=== PATIENT | female | born 1950 | race Caucasian/White ===

== ENCOUNTER 2016-04-17 16:55 | Emergency (ER) | payer OTHER, MEDICARE ==
[~2016-04-17] VITALS: Ht 177.8 cm; Wt 74.6 kg
[~2016-04-17 16:55] MED LIST: [UNRECOGNIZED DRUG - OTHER]
[2016-04-17 16:59] VITALS: TEMP 36.5; Ht 177.8 cm; Wt 74.6 kg
[2016-04-17] MEDS ORDERED: MULT-240 PO (17:19)
--- NOTE | 2016-04-17 17:30 | EMERGENCY ROOM VISIT NOTE ---
History Report prepared by Danielibuna: Katharine Aparicio Under the Supervision of: Dr. Abdelrahman Marvin M.D. First contact with patient: 17:02 Chief Complaint: FALL Stated Complaint: R WRIST PAIN,R LEG AND FOOT PAIN, FALL ON ICE History of Present Illness The patient is a 66 year old female who presents to the Emergency Room with complaints of constant right wrist pain and right lateral foot pain status post a fall that occurred about an hour ago. The patient states that she slipped on ice outside which caused her to fall. She did not lose consciousness or hit her head. She landed on her right hip, leg, and foot and broke her fall with her right hand. She has been able to walk well since the fall. She took Advil en route to the ED with some relief. She is not on any blood thinners. She does have a history of a right hip replacement 7 years ago. Source of History: patient, spouse/significant other Onset: an hour ago Position: hand (right), foot (left) Timing: constant Modifying Factors (Relieving): other (Advil) Associated Symptoms: No LOC Review of Systems See HPI for pertinent positives & negatives. A total of 10 systems reviewed and were otherwise negative. Past Medical & Surgical Surgical Problems: (1) History of right hip replacement Old medical records were reviewed. Nurse's notes were reviewed and I agree with. Family History FHx: cancer Hypertension Social History Smoking Status: Former Smoker Drug Use: none Marital Status: Housing Status: lives with significant other Current/Historical Medications Scheduled Multiple Vitamins W/ Minerals (Womens One Daily), 1 TAB PO DAILY Allergies Coded Allergies: No Known Allergies (Verified Allergy, NKA, 03/12/08) Physical Exam Vital Signs Date Time Temp Pulse Resp B/P Pulse Ox O2 Delivery O2 Flow Rate FiO2 04/17/16 18:42 59 16 125/83 99 04/17/16 16:59 36.5 62 17 149/95 97 Physical Exam General: Non-ill appearing middle aged female. Well developed well nourished in no acute distress, breathing comfortably on room air. Normal speech HEENT: Normal cephalic atraumatic. Pupils are equal round and reactive to light. Extraocular movements are intact. Oropharynx is pink with moist mucous membranes. No swelling of the mouth lips or tongue. Neck: Supple with a midline trachea. No meningeal signs or stiffness, no JVD or bruits. No Stridor. Chest: Clear to auscultation bilaterally. No wheezes or rhonchi. No increased work of breathing. Heart: regular rate and rhythm. Abdomen: Soft nontender, nondistended without rebound guarding or rigidity. Extremities: No cyanosis clubbing or edema. No calf tenderness or assymetry. Mild tenderness in the right lateral mid-foot, normal ankle and knee exam. Mild tenderness along the ulnar aspect of the right wrist and right hand. Right hip minimally tender to palpation. Spine/Back. Non tender to palpation. No CVA tenderness Skin: Good turgor without rashes. Neurologic exam: Cranial nerves two through 12 are intact. Motor and sensation are intact and symmetrical throughout. Medical Decision & Procedures ER Provider Diagnostic Interpretation: Radiology results as stated below per my review and radiologist interpretation: WRIST MIN 3 VIEWS ROUTINE CLINICAL HISTORY: Right wrist pain status post trauma COMPARISON: None. DISCUSSION: No fractures of the distal radius or ulna are visualized. On the oblique view, there is a lucency through the pisiform. This may represent a nondisplaced fracture. Please correlate with the patient's site of pain. IMPRESSION: Possible nondisplaced pisiform fracture. Clinical correlation with the patient's site of pain is advocated Electronically signed by: Fermin Rich M.D. 04/17/2016 6:06 PM Dictated Date/Time: 04/17/2016 6:04 PM AP PELVIS AND RIGHT HIP 3 VIEWS CLINICAL HISTORY: Right hip pain, COMPARISON STUDY: No previous studies for comparison. FINDINGS: No acute fractures or dislocations are visualized. There are postsurgical changes of a total right hip arthroplasty. IMPRESSION: Postsurgical change. No fractures identified. Electronically signed by: Fermin Rich M.D. 04/17/2016 6:03 PM Dictated Date/Time: 04/17/2016 6:02 PM RIGHT FOOT MIN 3 VIEWS ROUTINE CLINICAL HISTORY: Right foot pain status post trauma COMPARISON: None. DISCUSSION: 3 views reveal no fractures or dislocations. IMPRESSION: No fractures identified. Electronically signed by: Fermin Rich M.D. 04/17/2016 6:04 PM Dictated Date/Time: 04/17/2016 6:03 PM ED Course 1722: The patient was evaluated in room D5, and a complete history and physical examination were performed. 1830: Upon reevaluation, the patient is resting comfortably. I discussed the results and treatment plan with her. She verbalized agreement of the treatment plan. The patient was discharged home. Medical Decision Differential diagnosis includes orthopedic injuries, fracture, contusion, dislocation. This patient comes in as described above. She was placed in room D5. She is here for treatment and evaluation of a mechanical fall. She has pain along her ulnar aspect of her right wrist as well as lateral hospital for right foot in the midfoot area and minimal pain in her right hip during other injur.y she did not hit her head. there is no syncope chest pain or shortness of breath. She has taken ibuprofen prior to arrival and declined further pain medication x- rays were obtained. She had x-rays which do not show any fractures of the foot or hip. There is possible is a former fracture on the left hand and this is where she is tender so I will use a wrist lacer splint and follow-up with her orthopedist this week. She should rest, ice and elevate. Use ibuprofen for pain. Return if: increasing pain, worsening of symptoms, numbness or weakness , any new problems or concerns. She was happy with the plan and discharged to home. Impression Primary Impression: Fracture of pisiform Additional Impression: Sprain of foot, right Scribe Attestation The scribe's documentation has been prepared under my direction and personally reviewed by me in its entirety. I confirm that the note above accurately reflects all work, treatment, procedures, and medical decision making performed by me. Departure Information Dispostion Home / Self-Care Referrals Ranjit Booker M.D.([facility]) (PCP) Patient Instructions My [facility] Additional Instructions Rest. Drink plenty of fluids. Use wrist lacer splint. May take off in the shower Use ibuprofen 400 mg every 6 hours, take with food Return if: Increasing pain, numbness or weakness, fever or chills, any new problems or concerns. Follow-up with Dr. Seymour this week for recheck Problem Qualifiers
--- NOTE | 2016-04-17 18:04 | DIAGNOSTIC IMAGING REPORT ---
AP PELVIS AND RIGHT HIP 3 VIEWS CLINICAL HISTORY: Right hip pain, COMPARISON STUDY: No previous studies for comparison. FINDINGS: No acute fractures or dislocations are visualized. There are postsurgical changes of a total right hip arthroplasty. IMPRESSION: Postsurgical change. No fractures identified. Electronically signed by: Fermin Rich M.D. 04/17/2016 6:03 PM Dictated Date/Time: 04/17/2016 6:02 PM
--- NOTE | 2016-04-17 18:05 | DIAGNOSTIC IMAGING REPORT ---
RIGHT FOOT MIN 3 VIEWS ROUTINE CLINICAL HISTORY: Right foot pain status post trauma COMPARISON: None. DISCUSSION: 3 views reveal no fractures or dislocations. IMPRESSION: No fractures identified. Electronically signed by: Fermin Rich M.D. 04/17/2016 6:04 PM Dictated Date/Time: 04/17/2016 6:03 PM
--- NOTE | 2016-04-17 18:07 | DIAGNOSTIC IMAGING REPORT ---
WRIST MIN 3 VIEWS ROUTINE CLINICAL HISTORY: Right wrist pain status post trauma COMPARISON: None. DISCUSSION: No fractures of the distal radius or ulna are visualized. On the oblique view, there is a lucency through the pisiform. This may represent a nondisplaced fracture. Please correlate with the patient's site of pain. IMPRESSION: Possible nondisplaced pisiform fracture. Clinical correlation with the patient's site of pain is advocated Electronically signed by: Fermin Rich M.D. 04/17/2016 6:06 PM Dictated Date/Time: 04/17/2016 6:04 PM
[2016-04-17 18:42] VITALS: BP 125/83; PULSE 59; O2SAT 99
== END 2016-04-17 18:45 | disposition home or self-care (01) ==
LOC: C.EDB 16:57 → C.EDD 18:45
DX: S62.164A Nondisplaced fracture of pisiform, right wrist, initial encounter for closed fracture (principal); S93.601A Unspecified sprain of right foot, initial encounter; M25.551 Pain in right hip; Z96.641 Presence of right artificial hip joint; Z87.891 Personal history of nicotine dependence; Z82.49 Family history of ischemic heart disease and other diseases of the circulatory system; W00.0XXA Fall on same level due to ice and snow, initial encounter; Y99.8 Other external cause status

== ENCOUNTER → 2016-12-16 | Day surgery (SDC) | payer OTHER, MEDICARE ==
[2016-11-24 09:17] VITALS: Ht 177.8 cm; Wt 68.2 kg
[~2016-12-16] VITALS: Ht 177.8 cm; Wt 68.2 kg
[~2016-12-16] MED LIST changes: +500ML BSS 0.3ML EPI 1:1000PF IRRIG ONE; +ACETAMINOPHEN 325 MG TAB PO PRN; +AMVISC PLUS 0.8ML SYRINGE INT OCU ONE; +ATROPINE SULFATE 0.1 MG/ML 5ML SYR IV PRN; +BSS FLUSH ONE; +ESCI1TAB10 PO; +EpHEDrine SULFATE INJ 50 MG/ML AMP IV PRN; +EpINEphrine INJ 1MG/ML AMP 1 MG/ML AMP ONE; +LACTATED RINGER'S 1000ML 500 ML IV SCH; +LIDOCAINE 3.5% OPH GEL PER APPLICATION CHARGE ONE; +LIDOCAINE HCL 1% MPF 2 ML VIAL ONE; +MIDAZOLAM HCL 1 MG/ML 2ML VIAL ONE; +MULT-610 PO; +OCUCOAT 1 ML SOLN IO ONE; +POVIDONE-IODINE OP SOLN 30 ML BTL ONE; +PROPARACAINE 0.5% OP SOLN PER DROP CHARGE OPR SCH; +TOBRAMYCIN/DEXAMETHASONE OPH OINT PER APPLN CHARGE ONE; -[UNRECOGNIZED DRUG - OTHER]
[2016-12-16] MEDS: PHENYLEPHRINE HCL 2.5% OP SOLN PER DROP CHARGE OPR SCH ×2 (09:31→09:37)
[2016-12-16] MEDS: TROPICAMIDE 1% OP SOLN PER DROP CHARGE OPR SCH ×2 (09:32→09:39)
[2016-12-16] MEDS: CYCLOPENTOLATE HCL 1% OP SOLN PER DROP CHARGE OPR SCH ×2 (09:33→09:40)
[2016-12-16] MEDS: KETOROLAC 0.5% OP SOLN PER DROP CHARGE OPR SCH ×2 (09:34→09:41)
[2016-12-16] MEDS: GATIFLOXACIN OP SOLN PER DROP CHARGE OPR SCH ×2 (09:35→09:41)
--- NOTE | 2016-12-16 10:04 | History & Physical Bridge - SC ---
H&P Re-Evaluation Bridge Note: I have examined the patient, reviewed the History & Physical and in the interval since the performance of the History & Physical I have noted the following changes of clinical significance: No changes noted
--- NOTE | 2016-12-16 10:47 | [facility] Operative Report ---
Operative Report Date of Service Dec 16, 2016. Operative Report 1. PREOPERATIVE DIAGNOSIS: Cataract of the right eye. 2. POSTOPERATIVE DIAGNOSIS: Same. 3. PROCEDURE: Phacoemulsification with intraocular lens implantation of the right eye. SURGEON: Dr. Enoc Damon. ANESTHESIA: Topical Lidocaine gel, 1% Non- Preserved intracameral Lidocaine, and monitored intravenous sedation. INDICATIONS FOR THE PROCEDURE: The patient is a 66 - year-old female with a history of cataract of the right eye causing significant visual impairment. The details of the proposed procedure were explained to the patient who asked appropriate questions and following discussion of all risks, benefits and alternatives agreed to have the procedure done. 4. OPERATION AND FINDINGS: DESCRIPTION OF PROCEDURE: After informed consent was obtained, the patient was brought to the Operating Room at the [facility]. The patient was placed in a supine position and then the right eye was prepped and draped in the usual sterile fashion for intraocular surgery. A drop of topical Lidocaine gel was placed in the operative eye. A wire lid speculum was then placed in the fornices. A corneal paracentesis was then created temporally. The Non-Preserved Lidocaine was then instilled into the anterior chamber. The anterior chamber was then pressurized with viscoelastic. A 2.0 mm clear corneal incision was then created temporally. A cystotome was inserted into the anterior chamber and used to create a tear in the anterior lens capsule. This capsular tear was then used to create a small flap and the flap was dragged in a counterclockwise direction in order to create a continuous curvilinear capsulorrhexis. Hydrodissection was accomplished with balanced salt solution. Phacoemulsification of the lens nucleus was then performed in a standard [id number] technique. The phaco time was 21 seconds with an average power of 11 %. The remaining cortical material was removed using irrigation aspiration. The capsular bag was then filled with viscoelastic. A B[employer]ch [employer] Lomb MX60 +16.0 diopters lens was then loaded into the injector and injected into the capsular bag. The remaining viscoelastic was removed with the irrigation aspiration handpiece. The wound was hydrated and then checked and found to be watertight. The intraocular pressure was checked and found to be adequate. The wire lid speculum was removed and the patient's face was cleaned and dried. TobraDex ointment was placed in the inferior fornix. The patient was discharged to the Recovery Room having tolerated the procedure well. There were no complications. The patient will be seen tomorrow in the office for follow-up. I attest to the content of the Intraoperative Record and any orders documented therein. Any exceptions are noted below.
--- NOTE | 2016-12-16 10:47 | Discharge Instructions-SurgCtr ---
Discharge Instructions Date of Service Dec 16, 2016. Visit Reason for Visit: Cataract Right Eye Discharge Discharge Diagnosis / Problem: cataract Discharge Goals Goal(s): Improve function Activity Recommendations Activity Limitations: per Instructions/Follow-up section Anesthesia . Post Anesthesia Instructions: If you have had General Anesthesia or IV Sedation: * Do not drive today. * Resume driving when surgeon permits. * Do not make important decisions or sign legal documents today. * Call surgeon for: 1. Temperature elevations greater than 101 degrees F. 2. Uncontrollable pain. 3. Excessive bleeding. 4. Persistent nausea and vomiting. 5. Medication intolerance (nausea, vomiting or rash). * For nausea and vomiting use only clear liquids such as: tea, soda, bouillon until nausea subsides, then gradually increase diet as tolerated. * If you have any concerns or questions, call your surgeon's office. If physician is unavailable and it is an emergency, call 911 or go to the nearest emergency room. . Diet Recommendations Home Diet: resume previous diet Procedures Procedures Performed: Right Cataract Phacoemulsification With Intraocular Lens Implant Pending Studies Studies pending at discharge: no Medical Emergencies . Who to Call and When: Medical Emergencies: If at any time you feel your situation is an emergency, please call 911 immediately. . Non-Emergent Contact Non-Emergency issues call your: Network Engineer Administrator . . "Provider Documentation" section prepared by Enoc Damon. .
[2016-12-16 10:54] VITALS: TEMP 36.6
--- NOTE | 2016-12-16 11:01 | Anesthesia Progress Nt - [facility] ---
Anesthesia Post Op Note Date & Time Dec 16, 2016 at 11:01 Vital Signs Pain Intensity: 0 Vital Signs Past 12 Hours Date Time Temp Pulse Resp B/P (MAP) Pulse Ox O2 Delivery O2 Flow Rate FiO2 12/16/16 10:54 36.6 58 20 137/82 (100) 100 Room Air 12/16/16 09:23 36.3 62 16 150/90 (110) 99 Room Air Notes Mental Status: alert / awake / arousable, participated in evaluation Pt Amnestic to Procedure: Yes Nausea / Vomiting: adequately controlled Pain: adequately controlled Airway Patency, RR, SpO2: stable & adequate BP & HR: stable & adequate Hydration State: stable & adequate Anesthetic Complications: no major complications apparent
[2016-12-16 11:13] VITALS: BP 135/83; PULSE 74; O2SAT 97
== END | disposition home or self-care (01) ==
LOC: X.SURG 09:10
PROVIDERS: ATTEND Ophthalmology
DX: H26.9 Unspecified cataract (principal); Z87.891 Personal history of nicotine dependence; Z79.899 Other long term (current) drug therapy

== ENCOUNTER → 2017-01-18 | Day surgery (SDC) | payer OTHER, MEDICARE ==
[2016-12-29 09:56] VITALS: Ht 177.8 cm; Wt 68.2 kg
[~2017-01-18] VITALS: Ht 177.8 cm; Wt 68.2 kg
[~2017-01-18] MED LIST changes: +FENTANYL CITRATE INJ 50 MCG/1 ML 2 ML VIAL ONE; +PROPARACAINE 0.5% OP SOLN PER DROP CHARGE OPL SCH; -PROPARACAINE 0.5% OP SOLN PER DROP CHARGE OPR SCH
[2017-01-18] MEDS: PHENYLEPHRINE HCL 2.5% OP SOLN PER DROP CHARGE OPL SCH ×2 (09:09→09:14)
[2017-01-18] MEDS: TROPICAMIDE 1% OP SOLN PER DROP CHARGE OPL SCH ×2 (09:10→09:15)
[2017-01-18] MEDS: CYCLOPENTOLATE HCL 1% OP SOLN PER DROP CHARGE OPL SCH ×2 (09:11→09:16)
[2017-01-18] MEDS: KETOROLAC 0.5% OP SOLN PER DROP CHARGE OPL SCH ×2 (09:12→09:17)
[2017-01-18] MEDS: GATIFLOXACIN OP SOLN PER DROP CHARGE OPL SCH ×2 (09:13→09:23)
--- NOTE | 2017-01-18 10:18 | Discharge Instructions-SurgCtr ---
Discharge Instructions Date of Service Jan 18, 2017. Visit Reason for Visit: Cataract Left Eye Discharge Discharge Diagnosis / Problem: cataract Discharge Goals Goal(s): Improve function Activity Recommendations Activity Limitations: per Instructions/Follow-up section Anesthesia . Post Anesthesia Instructions: If you have had General Anesthesia or IV Sedation: * Do not drive today. * Resume driving when surgeon permits. * Do not make important decisions or sign legal documents today. * Call surgeon for: 1. Temperature elevations greater than 101 degrees F. 2. Uncontrollable pain. 3. Excessive bleeding. 4. Persistent nausea and vomiting. 5. Medication intolerance (nausea, vomiting or rash). * For nausea and vomiting use only clear liquids such as: tea, soda, bouillon until nausea subsides, then gradually increase diet as tolerated. * If you have any concerns or questions, call your surgeon's office. If physician is unavailable and it is an emergency, call 911 or go to the nearest emergency room. . Diet Recommendations Home Diet: resume previous diet Procedures Procedures Performed: Left Cataract Phacoemulsification With Intraocular Lens Implant Pending Studies Studies pending at discharge: no Medical Emergencies . Who to Call and When: Medical Emergencies: If at any time you feel your situation is an emergency, please call 911 immediately. . Non-Emergent Contact Non-Emergency issues call your: Radio Aerial Installer . . "Provider Documentation" section prepared by Enoc Damon. .
--- NOTE | 2017-01-18 10:19 | [facility] Operative Report ---
Operative Report Date of Service Jan 18, 2017. Operative Report 1. PREOPERATIVE DIAGNOSIS: Cataract of the left eye. 2. POSTOPERATIVE DIAGNOSIS: Same. 3. PROCEDURE: Phacoemulsification with intraocular lens implantation of the left eye. SURGEON: Dr. Enoc Damon. ANESTHESIA: Topical Lidocaine gel, 1% Non- Preserved intracameral Lidocaine, and monitored intravenous sedation. INDICATIONS FOR THE PROCEDURE: The patient is a 66 - year-old female with a history of cataract of the left eye causing significant visual impairment. The details of the proposed procedure were explained to the patient who asked appropriate questions and following discussion of all risks, benefits and alternatives agreed to have the procedure done. 4. OPERATION AND FINDINGS: DESCRIPTION OF PROCEDURE: After informed consent was obtained, the patient was brought to the Operating Room at the [facility]. The patient was placed in a supine position and then the left eye was prepped and draped in the usual sterile fashion for intraocular surgery. A drop of topical Lidocaine gel was placed in the operative eye. A wire lid speculum was then placed in the fornices. A corneal paracentesis was then created temporally. The Non-Preserved Lidocaine was then instilled into the anterior chamber. The anterior chamber was then pressurized with viscoelastic. A 2.0 mm clear corneal incision was then created temporally. A cystotome was inserted into the anterior chamber and used to create a tear in the anterior lens capsule. This capsular tear was then used to create a small flap and the flap was dragged in a counterclockwise direction in order to create a continuous curvilinear capsulorrhexis. Hydrodissection was accomplished with balanced salt solution. Phacoemulsification of the lens nucleus was then performed in a standard [id number]-[id number] technique. The phaco time was 19 seconds with an average power of 11 %. The remaining cortical material was removed using irrigation aspiration. The capsular bag was then filled with viscoelastic. A Bausch & Lomb MX60 +17.5 diopters lens was then loaded into the injector and injected into the capsular bag. The remaining viscoelastic was removed with the irrigation aspiration handpiece. The wound was hydrated and then checked and found to be watertight. The intraocular pressure was checked and found to be adequate. The wire lid speculum was removed and the patient's face was cleaned and dried. TobraDex ointment was placed in the inferior fornix. The patient was discharged to the Recovery Room having tolerated the procedure well. There were no complications. The patient will be seen tomorrow in the office for follow-up. I attest to the content of the Intraoperative Record and any orders documented therein. Any exceptions are noted below.
[2017-01-18 10:52] VITALS: BP 125/74; PULSE 55; O2SAT 96
--- NOTE | 2017-01-18 10:57 | Anesthesia Progress Nt - [facility] ---
Anesthesia Post Op Note Date & Time Jan 18, 2017 at 10:56 Vital Signs Pain Intensity: 0 Vital Signs Past 12 Hours Date Time Temp Pulse Resp B/P (MAP) Pulse Ox O2 Delivery O2 Flow Rate FiO2 01/18/17 10:17 36.3 58 16 116/70 (85) 97 Room Air 01/18/17 08:56 36.9 60 16 129/69 (89) 95 Room Air Notes Mental Status: alert / awake / arousable, participated in evaluation Pt Amnestic to Procedure: Yes Nausea / Vomiting: adequately controlled Pain: adequately controlled Airway Patency, RR, SpO2: stable & adequate BP & HR: stable & adequate Hydration State: stable & adequate Anesthetic Complications: no major complications apparent
== END | disposition home or self-care (01) ==
LOC: X.SURG 08:50
PROVIDERS: ATTEND Ophthalmology
DX: H26.9 Unspecified cataract (principal)